=== PATIENT | male | born 1990 | race Caucasian/White ===

== ENCOUNTER 2019-05-18 21:05 | Emergency (ER) | payer OTHER, SELFPAY ==
[2019-05-18 21:14] VITALS: BP 152/90; PULSE 94; RESP 18; TEMP 37; O2SAT 98
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
[2019-05-18 21:30] VITALS: BP 142/94; PULSE 78; RESP 15; O2SAT 99
[2019-05-18] MEDS: ONDANSETRON 4 MG ODT PREPACK 1 BOTTLE MISC (21:50)
== END 2019-05-18 21:54 | disposition home or self-care (01) ==
LOC: ED 21:52
PROVIDERS: Emergency Provider Emergency Medicine
DX: S06.0X1A Concussion with loss of consciousness of 30 minutes or less, initial encounter (principal); V18.0XXA Pedal cycle driver injured in noncollision transport accident in nontraffic accident, initial encounter
CPT/HCPCS: 99282

== ENCOUNTER 2023-07-26 16:36 | Emergency (ER) | payer OTHER, SELFPAY ==
[2023-07-26 16:52] VITALS: BP 134/76; PULSE 63; RESP 14; TEMP 36.8; O2SAT 100; BMI 21.9
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
[2023-07-26 20:18] VITALS: BP 141/82; PULSE 64; O2SAT 98
[2023-07-26 20:30] VITALS: BP 127/78; PULSE 68; O2SAT 98
== END 2023-07-26 20:59 | disposition home or self-care (01) ==
PROVIDERS: Emergency Provider Emergency Medicine
DX: S01.511A Laceration without foreign body of lip, initial encounter (principal); W22.8XXA Striking against or struck by other objects, initial encounter; Y93.55 Activity, bike riding
CPT/HCPCS: 12011; 99281; 99283

== ENCOUNTER → 2024-03-14 11:56 | Outpatient (CLI) | payer OTHER, SELFPAY ==
--- NOTE | 2024-03-14 11:40 | DI.RAD.S_ITS ---
PROCEDURE: XR HAND LT 2V INDICATIONS: FRACTURE OF LF HAND TECHNIQUE: 2 views of the hand(s) acquired. COMPARISON: None. FINDINGS: Bones: No fractures or dislocations. Carpal bones are normally aligned. No suspicious bony lesions. Soft tissues: No suspicious soft tissue calcifications. IMPRESSION: No acute bony abnormality. If pain persists, followup imaging in 5-7 days is recommended to exclude occult fracture. Dictated by: Nelly Wing M.D. on 03/14/2024 at 14:34 Approved by: Nelly Wing M.D. on 03/14/2024 at 14:35
== END ==
PROVIDERS: Referring Provider Chiropractor; Visit Provider Chiropractor
DX: M84.40XA Pathological fracture, unspecified site, initial encounter for fracture (principal)
CPT/HCPCS: 73120